=== PATIENT | male | born 1960 | race Caucasian/White ===

== ENCOUNTER 2024-08-25 13:33 | Emergency (ER) | payer OTHER ==
[~2024-08-25] VITALS: Ht 170.2 cm; Wt 72.6 kg
[2024-08-25 13:39] VITALS: BP 107/66; PULSE 90; RESP 20; TEMP 98.3; O2SAT 97
[2024-08-25 19:00] VITALS: BP 112/69; PULSE 80; RESP 18; TEMP 98; O2SAT 97
== END 2024-08-25 19:00 | disposition home or self-care (01) ==
LOC: MED 13:33
DX: S09.90XA Unspecified injury of head, initial encounter (principal); F03.90 Unspecified dementia, unspecified severity, without behavioral disturbance, psychotic disturbance, mood disturbance, and anxiety; E11.9 Type 2 diabetes mellitus without complications; E78.5 Hyperlipidemia, unspecified; Z86.73 Personal history of transient ischemic attack (TIA), and cerebral infarction without residual deficits; W18.09XA Striking against other object with subsequent fall, initial encounter; Y93.89 Activity, other specified; Y92.89 Other specified places as the place of occurrence of the external cause; Y99.8 Other external cause status
CPT/HCPCS: 70450; 99284

== ENCOUNTER 2024-08-28 17:28 | Inpatient (IN) | payer OTHER ==
[~2024-08-28] VITALS: Ht 170 cm; Wt 81.6 kg
[2024-08-28 19:40] VITALS: PULSE 99; RESP 19; O2SAT 95
[2024-08-28 20:16] VITALS: PULSE 102
[2024-08-28] MEDS ORDERED: DOCU-2 PO (21:14)
[2024-08-28] MEDS ORDERED: GLUC1PDS1 IM (21:14)
[2024-08-28] MEDS ORDERED: MELA1TAB32 PO (21:14)
[2024-08-28] MEDS ORDERED: DIVA250T PO (21:14)
[2024-08-28] MEDS ORDERED: MULT-2246 PO (21:14)
[2024-08-28] MEDS ORDERED: METF-346 PO (21:14)
[2024-08-28] MEDS ORDERED: ACET-2619 PO ×2 (21:14)
[2024-08-28] MEDS ORDERED: LIP80 PO (21:14)
[2024-08-28] MEDS ORDERED: FAMO-90 PO (21:14)
[2024-08-28] MEDS ORDERED: ASPI-1856 PO (21:14)
[2024-08-28] MEDS ORDERED: FERR325E14 PO (21:14)
[2024-08-28] MEDS ORDERED: NA P133E RC (21:14)
[2024-08-28] MEDS ORDERED: MAGN400S60 PO (21:14)
[2024-08-28] MEDS ORDERED: BISA-279 RC (21:14)
[2024-08-28] MEDS ORDERED: MORPHINE SULFATE 4 MG/ML SYR IVP PRN (21:55)
[2024-08-28] MEDS ORDERED: MAG SULF 2000 MG/WATER PREMIX 50 ML IV PRN (21:55)
[2024-08-28] MEDS ORDERED: ONDANSETRON 4 MG/2 ML VIAL IVP PRN (21:55)
[2024-08-28] MEDS ORDERED: POTASSIUM CHLORIDE 10 MEQ TABER PO PRN (21:55)
[2024-08-28] MEDS ORDERED: ACETAMINOPHEN 325 MG TAB PO PRN (21:55)
[2024-08-28] MEDS ORDERED: DEXTROSE 50% 50 ML SYR IVP PRN (21:55)
[2024-08-28] MEDS ORDERED: KCL 20 MEQ IN 100 mL PREMIX 200 ML IV PRN (21:55)
[2024-08-28] MEDS ORDERED: HYDROcodone/APAP 5/325 MG 1 TAB TAB PO PRN (21:55)
[2024-08-28 23:54] VITALS: PULSE 82
[2024-08-29] VITALS (7 sets, daily range): BP systolic 95–131; BP diastolic 52–77; PULSE 68–86; RESP 18–21; TEMP 97–97.7; O2SAT 94–98
[2024-08-29 05:33] LABS: BASOPHILS # (AUTO) 0.1 K/uL (0.00-0.22); BASOPHILS % (AUTO) 1.3 % (0.0-2.0); EOSINOPHILS # (AUTO) 0.4 K/uL (0-0.4); EOSINOPHILS % (AUTO) 7.3 % (0.0-4.0); HEMATOCRIT 37.8 % (36-52); HEMOGLOBIN 12.7 g/dL (12.0-18.0); LYMPHOCYTES # (AUTO) 2.5 K/uL (2.0-11.5); LYMPHOCYTES % (AUTO) 44.7 % (20.5-51.1); MEAN CORPUSCULAR HEMOGLOBIN 30 pg (27-31); MEAN CORPUSCULAR HGB CONC 34 g/dL (33-37); MEAN CORPUSCULAR VOLUME 90.5 fL (80-94); MONOCYTES # (AUTO) 0.6 K/uL (0.8-1.0); MONOCYTES % (AUTO) 10.2 % (1.7-9.3); NEUTROPHILS # (AUTO) 2.1 K/uL (1.8-7.7); NEUTROPHILS % (AUTO) 36.5 % (42.2-75.2); PLATELET COUNT (AUTO) 134 K/uL (140-450); RED BLOOD CELL COUNT(AUTO) 4.18 MIL/uL (4.20-6.10); WHITE BLOOD COUNT (AUTO) 5.7 K/uL (4.8-10.8)
[2024-08-29 05:59] LABS: ALBUMIN 2.9 g/dL (3.4-5.0); ANION GAP 9.8 (8-16); CALCIUM 8.3 mg/dL (8.5-10.1); CARBON DIOXIDE 30.3 mmol/L (21-32); CREATININE 0.8 mg/dL (0.6-1.3); MAGNESIUM 1.7 mg/dL (1.8-2.4); POTASSIUM 4.1 mmol/L (3.5-5.1); TOTAL BILIRUBIN 0.3 mg/dL (0.0-1.0); TOTAL PROTEIN, SERUM 6.7 g/dL (6.4-8.2)
[2024-08-29] MEDS: BLOOD GLUCOSE MONITORING 1 DEV DEV FS SCH (06:38)
[2024-08-29] MEDS: DOCUSATE SODIUM 100 MG GELCAP PO SCH (09:26)
[2024-08-29] MEDS: INSULIN LISPRO SLIDING SCALE 100 UNITS/ML VIAL SUBQ PRN (11:45)
[2024-08-29] MEDS: MAGNESIUM OXIDE 400 MG TAB PO PRN (13:34)
[2024-08-30] VITALS: BP_SYST 121; BP_SYST 126; BP_DIAS 71; BP_DIAS 77; PULSE 65; PULSE 68; RESP 16; TEMP 97.1; O2SAT 97
[2024-08-30 04:00] VITALS: BP 126/77; PULSE 70; PULSE 73; RESP 16; TEMP 96.7; O2SAT 98
[2024-08-30 05:46] LABS: ALBUMIN 3.1 g/dL (3.4-5.0); ANION GAP 11.4 (8-16); CALCIUM 8.9 mg/dL (8.5-10.1); CARBON DIOXIDE 28.7 mmol/L (21-32); CREATININE 0.6 mg/dL (0.6-1.3); MAGNESIUM 1.8 mg/dL (1.8-2.4); POTASSIUM 4.1 mmol/L (3.5-5.1); TOTAL BILIRUBIN 0.3 mg/dL (0.0-1.0); TOTAL PROTEIN, SERUM 7.2 g/dL (6.4-8.2)
[2024-08-30 05:50] LABS: EOSINOPHILS # (AUTO) 0.4 K/uL (0-0.4); EOSINOPHILS % (AUTO) 8.3 % (0.0-4.0); HEMATOCRIT 40.1 % (36-52); HEMOGLOBIN 13.5 g/dL (12.0-18.0); LYMPHOCYTES # (AUTO) 2.4 K/uL (2.0-11.5); LYMPHOCYTES % (AUTO) 45.5 % (20.5-51.1); MEAN CORPUSCULAR HEMOGLOBIN 30 pg (27-31); MEAN CORPUSCULAR HGB CONC 34 g/dL (33-37); MEAN CORPUSCULAR VOLUME 90.3 fL (80-94); MONOCYTES # (AUTO) 0.5 K/uL (0.8-1.0); MONOCYTES % (AUTO) 10.1 % (1.7-9.3); NEUTROPHILS # (AUTO) 1.8 K/uL (1.8-7.7); NEUTROPHILS % (AUTO) 35.1 % (42.2-75.2); PLATELET COUNT (AUTO) 131 K/uL (140-450); RED BLOOD CELL COUNT(AUTO) 4.44 MIL/uL (4.20-6.10); RED CELL DISTRIBUTION WIDTH 14.2 % (11.6-13.7); WHITE BLOOD COUNT (AUTO) 5.2 K/uL (4.8-10.8)
[2024-08-30 08:00] VITALS: BP 135/87; PULSE 79; RESP 17; RESP 18; TEMP 97.8; O2SAT 96
[2024-08-30 12:00] VITALS: BP 110/71; PULSE 77; PULSE 96; RESP 20; TEMP 97.9; O2SAT 98
[2024-08-30] MEDS ORDERED: bisacodyL 10 MG SUPP RC PRN (12:50)
[2024-08-30 16:00] VITALS: BP 123/80; PULSE 70; PULSE 74; RESP 20; TEMP 97.4; O2SAT 96
[2024-08-30 20:00] VITALS: BP 120/80; PULSE 88; RESP 20; TEMP 97.4; O2SAT 96
[2024-08-30] MEDS: DOCUSATE SODIUM 100 MG GELCAP PO SCH (20:36)
[2024-08-30] MEDS: FAMOTIDINE 20 MG TAB PO SCH (20:37)
[2024-08-30] MEDS: ATORVASTATIN 80 MG TAB PO SCH (20:37)
[2024-08-31] VITALS: BP 90/54; PULSE 74; PULSE 76; RESP 17; TEMP 97.3; O2SAT 96
[2024-08-31 04:00] VITALS: BP 96/64; PULSE 69; PULSE 71; RESP 18; TEMP 97; O2SAT 95
[2024-08-31 04:54] LABS: BASOPHILS # (AUTO) 0.1 K/uL (0.00-0.22); EOSINOPHILS # (AUTO) 0.3 K/uL (0-0.4); EOSINOPHILS % (AUTO) 5.4 % (0.0-4.0); HEMATOCRIT 38.1 % (36-52); LYMPHOCYTES # (AUTO) 2.1 K/uL (2.0-11.5); LYMPHOCYTES % (AUTO) 34.9 % (20.5-51.1); MEAN CORPUSCULAR HEMOGLOBIN 31 pg (27-31); MEAN CORPUSCULAR HGB CONC 34 g/dL (33-37); MEAN CORPUSCULAR VOLUME 89.5 fL (80-94); MONOCYTES # (AUTO) 0.7 K/uL (0.8-1.0); MONOCYTES % (AUTO) 10.6 % (1.7-9.3); NEUTROPHILS % (AUTO) 48.1 % (42.2-75.2); PLATELET COUNT (AUTO) 150 K/uL (140-450); RED BLOOD CELL COUNT(AUTO) 4.26 MIL/uL (4.20-6.10); WHITE BLOOD COUNT (AUTO) 6.2 K/uL (4.8-10.8)
[2024-08-31 05:15] LABS: ALBUMIN 3.1 g/dL (3.4-5.0); ANION GAP 11.8 (8-16); CALCIUM 8.9 mg/dL (8.5-10.1); CARBON DIOXIDE 28.2 mmol/L (21-32); CREATININE 0.8 mg/dL (0.6-1.3); TOTAL BILIRUBIN 0.3 mg/dL (0.0-1.0); TOTAL PROTEIN, SERUM 7.1 g/dL (6.4-8.2)
[2024-08-31 08:00] VITALS: BP 115/67; PULSE 72; PULSE 74; RESP 18; TEMP 97.5; O2SAT 95
[2024-08-31] MEDS: FERROUS SULFATE 325 MG TABEC PO SCH (08:34)
[2024-08-31] MEDS: ECOTRIN 81 MG TABEC PO SCH (08:34)
[2024-08-31] MEDS ORDERED: CEFD300C3 PO (09:36)
[2024-08-31 12:00] VITALS: BP 104/65; PULSE 72; PULSE 75; RESP 18; TEMP 97.8; O2SAT 96
== END 2024-08-31 14:00 | DRG 640 ==
LOC: MTU 19:40
PROVIDERS: ADMIT Hospitalist; ATTEND Hospitalist
DX: E86.0 Dehydration (principal); G93.41 Metabolic encephalopathy; N39.0 Urinary tract infection, site not specified; E44.1 Mild protein-calorie malnutrition; R64 Cachexia; I10 Essential (primary) hypertension; E11.69 Type 2 diabetes mellitus with other specified complication; F03.90 Unspecified dementia, unspecified severity, without behavioral disturbance, psychotic disturbance, mood disturbance, and anxiety; R27.0 Ataxia, unspecified; E78.5 Hyperlipidemia, unspecified; Z86.73 Personal history of transient ischemic attack (TIA), and cerebral infarction without residual deficits; Z68.28 Body mass index [BMI] 28.0-28.9, adult
CPT/HCPCS: 36415; 70490; 70491; 80053; 82948; 83735; 85025; 87081; 97163-GP; 97530; J1644; J1815; Q9967